=== PATIENT | female | born 1950 | race Caucasian/White ===

== ENCOUNTER 2019-02-28 21:44 | Emergency (ER) | payer MEDICARE, OTHER ==
[2019-02-28] MEDS ORDERED: PROPARACAINE 0.5% OPHTH DROPS 15 ML LEFTEYE STA (22:41)
[2019-02-28] MEDS ORDERED: valACYclovir 500 MG TABLET PO STA (23:17)
--- NOTE | 2019-02-28 23:26 | ED Physician Documentation ---
PD HPI OPHTHO - Stated complaint Stated Complaint: EYE BURNING - Chief complaint Chief Complaint: Heent - History obtained from History obtained from: Patient - History of Present Illness Timing - onset: Today Timing - duration: Hours Timing - details: Abrupt onset, Still present Location: Left Quality / character: Itching, Burning, Aching, Sharp Associated symptoms: Redness, Tearing, FB sensation, Other (blurred vision) Contributing factors: Other (has had a recent cold sore) Similar symptoms before: Diagnosis (corneal abrasion) Recently seen: Not recently seen - Additional information Additional information: 68-year-old female previously well has developed irritation to her left eye when she awoke this morning she has sharp pain tearing some redness and blurring of her vision. Symptoms have increased throughout the day. She is in here now for evaluation of eye pain. She does not think that she got anything into her eye she does not wear contact lenses she does see a eye doctor periodically for a rare form of macular degeneration. She has had a recent cold sore. She has had a similar incident about 10 years ago at which time she was diagnosed with a corneal abrasion. She does not remember exactly how long it took to improve. Review of Systems Constitutional: denies: Fever Eyes: reports: Photophobia, Irritation. denies: Decreased vision, Discharge Ears: denies: Ear pain Nose: denies: Rhinorrhea / runny nose, Congestion Throat: denies: Sore throat Respiratory: denies: Cough PD PAST MEDICAL HISTORY - Past Medical History Past Medical History: No Respiratory: Asthma - Past Surgical History Past Surgical History: Yes /HAND SOLE SEWER: Breast reduction - Present Medications Home Medications: Ambulatory Orders Medication Instructions Recorded Confirmed Valacyclovir HCl [Valacyclovir] 1,000 mg PO TID #21 tablet 02/28/19 - Allergies Allergies/Adverse Reactions: Allergies Allergy/AdvReac Type Severity Reaction Status Date / Time amoxicillin [Amoxicillin] Allergy Intermediate Rash Verified 02/28/19 21:50 latex Allergy Mild Rash Verified 02/28/19 21:50 - Social History Does the pt smoke?: No Smoking Status: Never smoker Does the pt drink ETOH?: Yes Does the pt have substance abuse?: No - Immunizations Immunizations are current?: Yes PD ED PE NORMAL - Vitals Vital signs reviewed: Yes (hypertension) - General General: Alert and oriented X 3, No acute distress, Well developed/nourished - HEENT HEENT: Atraumatic, PERRL, EOMI, Other (The left cornea has some fluoroscien uptake in the superior quadrant under high magnification there is dendritic spiculation present consistent with herpes kerititis. There is no hyphema or distortion of the pupil and no FB in the conjunctiva) - Neck Neck: Supple, no meningeal sign - Respiratory Respiratory: No respiratory distress - Derm Derm: Normal color, Warm and dry, No rash - Extremities Extremities: No deformity, No edema - Neuro Neuro: Alert and oriented X 3, economic historian 2-12 intact, No motor deficit, No sensory deficit, Normal speech Eye Opening: Spontaneous Motor: Obeys Commands Verbal: Oriented GCS Score: 15 - Psych Psych: Normal mood, Normal affect Results - Vitals Vitals: Vital Signs - 24 hr 02/28/19 02/28/19 21:46 23:45 Temperature 36.6 C 36.5 C Heart Rate 68 66 Respiratory 14 18 Rate Blood Pressure 134/82 H 131/84 H O2 Saturation 99 99 Oxygen O2 Source Room air PD MEDICAL DECISION MAKING - ED course Complexity details: re-evaluated patient, considered differential, d/w patient ED course: 68 y/o female with corneal irritation appears to have herpes kerititis and she is administered valacyclovir. 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
[2019-02-28 23:47] VITALS: BP 131/84
== END 2019-02-28 23:47 | disposition home or self-care (01) ==
LOC: ED 21:44
DX: B00.52 Herpesviral keratitis (principal)
CPT/HCPCS: 99283; A9270; J3490

== ENCOUNTER 2022-03-25 08:00 | Outpatient (CLI) | payer MEDICARE, OTHER ==
[2022-03-25 15:55] LABS: H. PYLORIS ANTIGEN STL NEGATIVE (Negative)
== END 2022-03-25 23:59 | disposition home or self-care (01) ==
LOC: LAB.R 08:00
PROVIDERS: ATTEND Internal Medicine Gastroenterology
DX: R53.83 Other fatigue (principal); B96.81 Helicobacter pylori [H. pylori] as the cause of diseases classified elsewhere
CPT/HCPCS: 87338

== ENCOUNTER 2024-06-03 07:57 | Outpatient (CLI) | payer MEDICARE, OTHER ==
[2024-06-03 14:48] LABS: BASOPHILS # (AUTO) 0.1 10^3/uL (0.0-0.1); EOSINOPHILS # (AUTO) 0.1 10^3/uL (0.0-0.7); EOSINOPHILS % (AUTO) 1.3 %; HCT - HEMATOCRIT 41.3 % (37.0-47.0); HGB - HEMOGLOBIN 13.5 g/dL (12.0-16.0); LYMPHOCYTES # (AUTO) 1.5 10^3/uL (1.5-3.5); LYMPHOCYTES % (AUTO) 27.7 %; MEAN CORPUSCULAR HEMOGLOBIN 30.9 pg (27.0-31.0); MEAN CORPUSCULAR HGB CONC 32.7 g/dL (32.0-36.0); MEAN CORPUSCULAR VOLUME 94.5 fL (81.0-99.0); MEAN PLATELET VOLUME 11.8 fL (7.9-10.8); MONOCYTES # (AUTO) 0.4 10^3/uL (0.0-1.0); MONOCYTES % (AUTO) 8.2 %; NEUTROPHILS # (AUTO) 3.2 10^3/uL (1.5-6.6); NEUTROPHILS % (AUTO) 61.4 %; PLT - PLATELET COUNT 212 10^3/uL (130-450); RED BLOOD COUNT 4.37 10^6/uL (4.20-5.40); RED CELL DISTRIBUTION WIDTH 12.4 % (12.0-15.0); WHITE BLOOD COUNT 5.2 x10^3/uL (4.8-10.8)
[2024-06-03 15:48] LABS: THYROID STIMULATING HORMONE 3.08 uIU/mL (0.34-5.60)
[2024-06-03 15:57] LABS: ALBUMIN 4.3 g/dL (3.2-5.5); ALBUMIN/GLOBULIN RATIO 1.6 (1.0-2.2); ALKALINE PHOSPHATASE 53 IU/L (42-121); ALT ALANINE AMINOTRANSFERASE 11 IU/L (10-60); AST ASPARTATE AMINOTRANSFERASE 14 IU/L (10-42); BILIRUBIN,TOTAL 0.4 mg/dL (0.2-1.0); BUN - BLOOD UREA NITROGEN 16 mg/dL (6-20); CALCIUM 9.2 mg/dL (8.5-10.3); CARBON DIOXIDE - CO2 32 mmol/L (21-32); CHLORIDE 105 mmol/L (101-111); CHOL/HDL RATIO 3.8 (<4.4); CHOLESTEROL 238 mg/dL; CREATININE 0.7 mg/dL (0.6-1.3); GFR - MDRD 82 (>89); GLUCOSE 93 mg/dL (74-104); HDL CHOLESTEROL 63 mg/dL; LDL CHOLESTEROL,CALCULATED 147 mg/dL; LDL/HDL RATIO 2.3 (<4.4); POTASSIUM 4.2 mmol/L (3.5-4.5); SODIUM 140 mmol/L (135-145); TRIGLYCERIDES 141 mg/dL; VLDL CHOLESTEROL 28 mg/dL
== END 2024-06-03 07:58 | disposition home or self-care (01) ==
LOC: LAB.S 07:57
PROVIDERS: ATTEND Nurse Practitioner Acute Care
DX: Z13.228 Encounter for screening for other metabolic disorders (principal); Z13.220 Encounter for screening for lipoid disorders; Z13.29 Encounter for screening for other suspected endocrine disorder; Z13.0 Encounter for screening for diseases of the blood and blood-forming organs and certain disorders involving the immune mechanism
CPT/HCPCS: 36415; 80053; 80061; 83721; 84443; 85025